=== PATIENT | male | born 1980 | race Caucasian/White ===

== ENCOUNTER 2020-01-12 12:30 | Emergency (ER) | payer BC ==
[2020-01-12 12:34] VITALS: RESP 18
--- NOTE | 2020-01-12 13:09 | XR ---
EXAMINATION TYPE: XR chest 2V DATE OF EXAM: 01/12/2020 COMPARISON: 01/11/2015 HISTORY: Cough, sore throat, and fever TECHNIQUE: Frontal and lateral views of the chest are obtained. FINDINGS: There is no focal air space opacity, pleural effusion, or pneumothorax seen. The cardiac silhouette size is within normal limits. The osseous structures are intact. IMPRESSION: No acute cardiopulmonary process.
--- NOTE | 2020-01-12 13:42 | ED ---
URI HPI - General Chief Complaint: Upper Respiratory Infection Stated Complaint: ENT/Cough Time Seen by Provider: 01/12/20 12:37 Source: patient, RN notes reviewed Mode of arrival: ambulatory Limitations: no limitations - History of Present Illness Initial Comments: 39-year-old male presents emergency department with chief complaint of fever cough congestion sore throat. Patient states that has not follow-up unless 1-2 days. Patient states he recently traveled to the [facility] and when she wasn't multiple states including [facility], [place]. Patient states that he was sent here from work given that he is symptomatic. Patient denies any chest pain. He does feel short of breath at times. Patient denies ear pain no current headache. - Related Data Home Medications Medication Instructions Recorded Confirmed Hydrocodone/Acetaminophen [[place] 1 tab PO Q4HR PRN 04/04/16 04/04/16 5-325] Meloxicam [Mobic] 15 mg PO DAILY 04/04/16 04/04/16 Sertraline HCl [Zoloft] 50 mg PO DAILY 04/04/16 04/04/16 traMADol HCL [Ultram] 50 mg PO Q4HR PRN 04/04/16 04/04/16 Previous Rx's Medication Instructions Recorded Cyclobenzaprine [Flexeril] 10 mg PO TID #20 tab 04/04/16 Dexamethasone 0.75 mg PO DIRECTED #12 tablet 04/04/16 Allergies Allergy/AdvReac Type Severity Reaction Status Date / Time No Known Allergies Allergy Verified 01/12/20 12:34 Review of Systems ROS Statement: Those systems with pertinent positive or pertinent negative responses have been documented in the HPI. ROS Other: All systems not noted in ROS Statement are negative. Past Medical History Past Medical History: No Reported History Additional Past Medical History / Comment(s): vertigo History of Any Multi-Drug Resistant Organisms: None Reported Past Surgical History: No Surgical Hx Reported Past Psychological History: Depression Smoking Status: Current every day smoker Past Alcohol Use History: None Reported Past Drug Use History: None Reported General Exam Limitations: no limitations General appearance: alert, in no apparent distress Head exam: Present: atraumatic, normocephalic, normal inspection Eye exam: Present: normal appearance, PERRL, EOMI. Absent: scleral icterus, conjunctival injection, periorbital swelling ENT exam: Present: normal exam, normal oropharynx, mucous membranes moist, TM's normal bilaterally, normal external ear exam Neck exam: Present: normal inspection, full ROM. Absent: tenderness, meningismus, lymphadenopathy Respiratory exam: Present: normal lung sounds bilaterally. Absent: respiratory distress, wheezes, rales, rhonchi, stridor Cardiovascular Exam: Present: regular rate, normal rhythm, normal heart sounds. Absent: systolic murmur, diastolic murmur, rubs, gallop, clicks GI/Abdominal exam: Present: soft, normal bowel sounds. Absent: distended, tenderness, guarding, rebound, rigid Course Vital Signs 01/12/20 01/12/20 12:32 12:50 Temperature 98.3 F Pulse Rate 78 Respiratory 18 18 Rate Blood Pressure 147/99 O2 Sat by Pulse 98 Oximetry Medical Decision Making - Medical Decision Making Influenza, strep and x-ray unremarkable. Patient has had multiple recent travel areas. Patient was screened COVID 19 patient was instructed he has to self quarantine that he will be followed up with by infectious prevention or health Department pending results. This may take several days. Patient understands and agrees at this time. - Lab Data Lab Results 01/12/20 Range/Units 12:50 Influenza Type A RNA Not Detected (Not Detectd) Influenza Type B (PCR) Not Detected (Not Detectd) Group A Strep Rapid Negative (Negative) Disposition Clinical Impression: Acute upper respiratory infection Disposition: HOME SELF-CARE Condition: Stable Instructions (If sedation given, give patient instructions): Upper Respiratory Infection (ED) Additional Instructions: remaining in self quarantine until results.Please return to the Emergency Department if symptoms worsen or any other concerns. Is patient prescribed a controlled substance at d/c from ED?: No Referrals: Ector Gunn MD [Primary Care Provider] - 1-2 days Time of Disposition: 13:42
[2020-01-12 13:51] VITALS: BP 143/92; PULSE 83; TEMP 98
== END 2020-01-12 13:51 | disposition home or self-care (01) ==
LOC: EC 12:30
DX: J06.9 Acute upper respiratory infection, unspecified (principal); F32.9 Major depressive disorder, single episode, unspecified; Z79.899 Other long term (current) drug therapy; F17.200 Nicotine dependence, unspecified, uncomplicated
CPT/HCPCS: 87081; 87430; 87502; 71046; 99283; U0002

== ENCOUNTER 2020-05-04 18:06 | Emergency (ER) | payer BC, OTHER ==
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
[2020-05-06 09:39] VITALS: BP 140/93; PULSE 89; RESP 18; TEMP 98.8
== END 2020-05-04 20:18 | disposition home or self-care (01) ==
LOC: EC 18:06
DX: I10 Essential (primary) hypertension (principal); F17.200 Nicotine dependence, unspecified, uncomplicated; F32.9 Major depressive disorder, single episode, unspecified; Z79.899 Other long term (current) drug therapy
CPT/HCPCS: 93005; 99283

== ENCOUNTER 2022-01-07 21:37 | Emergency (ER) | payer BC ==
[2022-01-07 21:42] VITALS: RESP 16; TEMP 96.9
[2022-01-07] MEDS ORDERED: KETOROLAC 15 MG/ML 1 ML VIAL IM STA (22:46)
[2022-01-07] MEDS ORDERED: MORPHINE SULFATE 10 MG/ML 1ML VIAL IM STA (22:46)
[2022-01-07] MEDS ORDERED: ORPHENADRINE 30 MG/ML 2 ML VIAL IM STA (22:46)
--- NOTE | 2022-01-07 23:10 | ED ---
Back Pain HPI - General Chief Complaint: Back Pain/Injury Stated Complaint: back pain Time Seen by Provider: 01/07/22 22:38 Source: patient - History of Present Illness Initial Comments: This is a pleasant 41 year old male with no significant past medical history other than occasional recurrent back pain. Patient states that he coughed last weekend and strained his lower back. Patient states he has been to the chiropractor about 5 times since then. Patient states she is getting sharp pain in the lumbar area which is exacerbated by any movement. Patient denies any problems with balance urination. No fever or chills. No history of immunosuppression. No diabetes. No IV drug abuse. Patient states he is getting radiation of pain into both legs. This is intermittent. There is no saddle anesthesia. Pain is somewhat alleviated by position and rest. No headache, no fever or chills, no changes in vision or hearing, no sore throat or difficulty with speech, no neck pain, no chest pain or shortness of breath, no abdominal pain, no nausea or vomiting, no changes in urination or bowel movements, no numbness or tingling, no skin rashes or lesions. MD Complaint: back pain - Related Data Home Medications Medication Instructions Recorded Confirmed Hydrocodone/Acetaminophen [[place] 1 tab PO Q4HR PRN 04/04/16 04/04/16 5-325] Meloxicam [Mobic] 15 mg PO DAILY 04/04/16 04/04/16 Sertraline HCl [Zoloft] 50 mg PO DAILY 04/04/16 04/04/16 traMADol HCL [Ultram] 50 mg PO Q4HR PRN 04/04/16 04/04/16 Previous Rx's Medication Instructions Recorded Cyclobenzaprine [Flexeril] 10 mg PO TID #20 tab 04/04/16 dexAMETHasone 0.75 mg PO DIRECTED #12 tablet 04/04/16 Cyclobenzaprine [Flexeril] 10 mg PO TID PRN #20 tab 01/07/22 HYDROcodone/APAP 5-325MG [[place] 1 tab PO Q6HR PRN 3 Days #12 tab 01/07/22 5-325] Ibuprofen [Motrin] 600 mg PO Q8HR PRN #30 tab 01/07/22 Allergies Allergy/AdvReac Type Severity Reaction Status Date / Time No Known Allergies Allergy Verified 01/07/22 21:38 Review of Systems ROS Statement: Those systems with pertinent positive or pertinent negative responses have been documented in the HPI. ROS Other: All systems not noted in ROS Statement are negative. Past Medical History Past Medical History: No Reported History Additional Past Medical History / Comment(s): vertigo History of Any Multi-Drug Resistant Organisms: None Reported Past Surgical History: No Surgical Hx Reported Past Psychological History: Depression Smoking Status: Current every day smoker Past Alcohol Use History: Occasional Past Drug Use History: None Reported General Exam - General Exam Comments Initial Comments: 41-year-old male in moderate distress secondary to low back pain. Patient able to ambulate although is moving around quite gingerly. Cranial nerves II through XII are intact. General appearance: alert, in distress Head exam: Present: atraumatic, normocephalic, normal inspection Eye exam: Present: normal appearance, PERRL, EOMI. Absent: scleral icterus, conjunctival injection, periorbital swelling ENT exam: Present: normal exam, mucous membranes moist Neck exam: Present: normal inspection. Absent: tenderness, meningismus, lymph adenopathy Respiratory exam: Present: normal lung sounds bilaterally. Absent: respiratory distress, wheezes, rales, rhonchi, stridor Cardiovascular Exam: Present: regular rate, normal rhythm, normal heart sounds. Absent: systolic murmur, diastolic murmur, rubs, gallop, clicks GI/Abdominal exam: Present: soft, normal bowel sounds. Absent: distended, tenderness, guarding, rebound, rigid Extremities exam: Present: normal inspection, full ROM, normal capillary refill. Absent: tenderness, pedal edema, joint swelling, calf tenderness Back exam: Present: normal inspection, tenderness, muscle spasm, paraspinal tenderness, other (Straight leg raise is negative bilaterally. Distal sensation intact. Great toe extensor strength +5 out of 5. DTRs intact.). Absent: full ROM, CVA tenderness (R), CVA tenderness (L), vertebral tenderness, rash noted Neurological exam: Present: alert, oriented X3, CN II-XII intact, normal gait, motor sensory deficit, reflexes normal. Absent: altered, abnormal gait Psychiatric exam: Present: normal affect, normal mood. Absent: anxious, flat affect Skin exam: Present: warm, dry, intact, normal color. Absent: rash, cyanosis, diaphoretic, erythema, urticaria, vesicles Course Vital Signs 01/07/22 21:38 Temperature 96.9 F L Pulse Rate 87 Respiratory 16 Rate Blood Pressure 137/84 O2 Sat by Pulse 98 Oximetry Medical Decision Making - Medical Decision Making Patient states he saw one of our community providers had a banquet tonight and was told to come to the ER for a CAT scan. Patient otherwise has no symptoms of cauda equina syndrome. Patient does have intermittent radiation of pain into the legs with some movements. No bony point tenderness. There was no direct trauma. -There are no red flags for concerning back pathology. Specifically: -No history of cancer, this is not a mass effect, MRI not indicated. -No anticoagulation, this is not a bleed. -No fevers, no IVDU, this is not an infectious process. -With a normal neuro exam, and no urinary or bowel retention or incontinence, there is no clinical sign of motor defect or cauda equina - MRI is not indicated at this point. -No pulsating abdominal mass or risk factors for AAA. -Pain is relieved with rest, which is also less concerning. -I do not believe that x-rays or emergent MRI is indicated at this time. -We will treat symptomatically and discharge home with follow up instructions. -Stretching/strengthening exercise given to patient and they will be referred to physical therapy -Patient is instructed to use [id number] analgesics as directed on packaging for pain. The case was discussed in detail with ED attending physician. Presentation, findings, treatment plan discussed in detail. Patient was told to return to the ER for any signs or symptoms worsen. Told to return immediately if any other problems arise. All questions answered. Treatment plan discussed. Patient in agreement Every effort has been made to ensure accuracy of this dictation. However, due to the limitations of electronic medical records and dictation devices, errors in charting still occur. - Radiology Data Radiology results: report reviewed (No significant acute findings on CT of the lumbar spine and bony pelvis. Diverticulosis noted and discussed with the patient.), image reviewed Disposition Clinical Impression: Acute lumbosacral myofascial strain, Cigarette smoker, Diverticulosis Disposition: HOME SELF-CARE Condition: Stable Instructions (If sedation given, give patient instructions): Acute Low Back Pain (ED), How to Stop Smoking (ED), Diverticulosis (ED) Additional Instructions: Follow-up with your regular physician as directed. Return to the ER immediately if any symptoms worsen, new symptoms arise, or any other problems develop. Make the appointment with the orthopedic physician as discussed. Is patient prescribed a controlled substance at d/c from ED?: No Referrals: Julienne Beckford DO [Doctor of Osteopathic Medicine] - 1-2 days Ector Gunn MD [Primary Care Provider] - 1-2 days Time of Disposition: 23:59
--- NOTE | 2022-01-07 23:37 | CT ---
EXAMINATION TYPE: CT pelvis wo con DATE OF EXAM: 01/07/2022 COMPARISON: 01/01/2011 HISTORY: Pain CT DLP: 464.90 mGycm Automated exposure control for dose reduction was used. Images obtained from the diaphragm to the floor the pelvis without contrast. There are some sigmoid diverticula. There is no diverticulitis. Bladder distends smoothly. There is n o inguinal hernia. There is no free fluid in the pelvis. The pelvic ring appears intact. No evidence of pelvic fracture. Sacroiliac joints are intact. Lower lumbar spine is intact. Hip joint spaces are fairly normal. There is minimal acetabular spurring. There is no evidence of soft tissue mass. Sacrum and coccyx appear intact. Appendix appears normal. IMPRESSION: Negative CT scan of the pelvis. No fracture. There is mild sigmoid diverticulosis without diverticulitis.
--- NOTE | 2022-01-07 23:40 | CT ---
EXAMINATION TYPE: CT lumbar spine wo con DATE OF EXAM: 01/07/2022 COMPARISON: None HISTORY: Pain CT DLP: 1425 mGycm Automated exposure control for dose reduction was used. Images obtained from the level of T12-S3 vertebra without contrast. Lumbar vertebrae have normal alignment. Posterior elements are intact. There is no compression fractu re. Disc spaces are fairly normal. Sacroiliac joints are intact. There is no lumbar paraspinal mass. There is no evidence of focal bone destruction. No evidence of spinal stenosis. IMPRESSION: Negative CT scan of the lumbar spine.
[2022-01-08 00:35] VITALS: BP 122/83; PULSE 77
== END 2022-01-08 00:14 | disposition home or self-care (01) ==
LOC: EC 21:37
DX: S39.012A Strain of muscle, fascia and tendon of lower back, initial encounter (principal); K57.30 Diverticulosis of large intestine without perforation or abscess without bleeding; F17.210 Nicotine dependence, cigarettes, uncomplicated; X50.0XXA Overexertion from strenuous movement or load, initial encounter; F32.A Depression, unspecified
CPT/HCPCS: 99283; 96372 ×3; 72192; 72131; J2360; J2270; J1885

== ENCOUNTER 2022-02-13 21:44 | Emergency (ER) | payer BC ==
[2022-02-13 21:50] VITALS: RESP 18; TEMP 97.3
[2022-02-13] MEDS ORDERED: LIDOCAINE 1% INJ 10MG/ML (20 ML MDV) SQ ONE (22:51)
[2022-02-13] MEDS ORDERED: LIDOCAINE/EPINEPHR/TETRACAINE 5 ML BOTTLE TOPICAL ONE (22:51)
--- NOTE | 2022-02-13 23:20 | ED ---
Wound/Laceration HPI - General Chief Complaint: Wound/Laceration Stated Complaint: Laceration: Left Ring Finger Time Seen by Provider: 02/13/22 22:48 Source: patient Mode of arrival: ambulatory Limitations: no limitations - History of Present Illness Initial Comments: Patient is a 41-year-old male presenting with chief complaint of laceration. Patient was using a knife when he slipped and cut his right ring finger. Patient still has full range of motion and sensation in the finger. He is complaining of a throbbing pain at this time. Denies numbness, tingling, weakness, coldness, pallor, limited range of motion, loss of sensation, hand pain. - Related Data Home Medications Medication Instructions Recorded Confirmed Gabapentin [Neurontin] 300 mg PO HS 02/13/22 02/13/22 Sertraline [Zoloft] 25 mg PO DAILY 02/13/22 02/13/22 hydroCHLOROthiazide [Hydrodiuril] 25 mg PO DAILY 02/13/22 02/13/22 Allergies Allergy/AdvReac Type Severity Reaction Status Date / Time No Known Allergies Allergy Verified 02/13/22 23:15 Review of Systems ROS Statement: Those systems with pertinent positive or pertinent negative responses have been documented in the HPI. ROS Other: All systems not noted in ROS Statement are negative. Past Medical History Past Medical History: No Reported History Additional Past Medical History / Comment(s): vertigo History of Any Multi-Drug Resistant Organisms: None Reported Past Surgical History: No Surgical Hx Reported Past Psychological History: Depression Smoking Status: Current every day smoker Past Alcohol Use History: Occasional Past Drug Use History: None Reported General Exam Limitations: no limitations General appearance: alert, in no apparent distress Head exam: Present: atraumatic, normocephalic, normal inspection Eye exam: Present: normal appearance, EOMI. Absent: scleral icterus Extremities exam: Present: full ROM, normal capillary refill. Absent: tenderness Right Hand Wrist exam: Present: laceration (Right third digit on the posterior aspect measuring about 3 cm) Vascular: Absent: vascular compromise Neurological exam: Present: alert, oriented X3, CN II-XII intact Psychiatric exam: Present: normal affect, normal mood Skin exam: Present: warm, dry, normal color. Absent: rash Expanded Type of lesion: Present: laceration (3 cm in length located on the dorsal aspect of the right third digit) Course Vital Signs 02/13/22 21:47 Temperature 97.3 F L Pulse Rate 74 Respiratory 18 Rate Blood Pressure 128/89 O2 Sat by Pulse 98 Oximetry Procedures - Laceration Laceration #1 Consent Obtained: verbal consent Indication: laceration Site: other (Finger) Size (cm): 3 Description: linear Depth: simple, single layer Anesthetic Used: lidocaine 1% Anesthesia Technique: local infiltration Amount (mls): 5 Pre-repair: wound explored, irrigated extensively, deep structures intact Type of Sutures: nylon Size of Sutures: 4-0 Number of Sutures: 4 Technique: simple, interrupted Patient Tolerated Procedure: well Medical Decision Making - Medical Decision Making Patient is a 41-year-old male presenting for evaluation after obtaining a laceration to the right third digit while using a knife. Patient states his last tetanus was 2 years ago. Patient has full range of motion and sensation is intact in the affected digit. I obtained verbal consent for laceration repair. Area was infiltrated with 1% lidocaine and lanced with iodine. Area was irrigated extensively with 1 L of sterile water. 4 simple interrupted sutures were applied using 4-0 nylon suture. I educated the patient on wound care and for do not sutures may come out in 10-14 days. May be done by PCP, urgent care, ER. I counseled the patient on signs of infection to monitor for, return parameters, and answered all questions. Back to ER if any worsening symptoms. Follow-up with PCP this week. Take Motrin or Tylenol as needed for pain control. Patient conveyed verbal understanding and agreed to the plan. Disposition Clinical Impression: Laceration Disposition: HOME SELF-CARE Condition: Good Instructions (If sedation given, give patient instructions): Care For Your Stitches (DC), Laceration (DC), Finger Laceration (ED) Additional Instructions: Follow-up with your primary care provider this week. Report back to ER with any worsening symptoms or signs of infection. Stitches may be removed in 10-14 days. Is patient prescribed a controlled substance at d/c from ED?: No Referrals: Ector Gunn MD [Primary Care Provider] - 1-2 days Time of Disposition: 23:59
[2022-02-14 00:21] VITALS: BP 127/78; PULSE 72
== END 2022-02-14 00:21 | disposition home or self-care (01) ==
LOC: EC 21:44
DX: S61.215A Laceration without foreign body of left ring finger without damage to nail, initial encounter (principal); F17.200 Nicotine dependence, unspecified, uncomplicated; W26.8XXA Contact with other sharp object(s), not elsewhere classified, initial encounter
CPT/HCPCS: 12002; 99282; J2001